=== PATIENT | male | born 1985 | race Caucasian/White ===

== ENCOUNTER → 2019-11-04 | Outpatient (REF) | payer OTHER, MEDICAID ==
[2019-11-04 12:48] LABS: BASO % 0.2 % (0.0-1.0); EOS # 0.2 10^3/uL (0.0-0.5); EOS % 4.2 % (0.0-3.0); HEMATOCRIT 45.4 % (42.0-52.0); LYMPH # 1.7 10^3/uL (1.5-5.0); LYMPH % 36.8 % (24.0-44.0); MEAN CORPUSCULAR HEMOGLOBIN 29.2 pg (27.0-33.0); MEAN CORPUSCULAR VOLUME 88.5 fl (80.0-96.0); MONO # 0.4 10^3/uL (0.0-0.8); MONO % 8.9 % (0.0-5.0); NEUTROPHILS # 2.2 10^3/uL (1.5-8.5); NEUTROPHILS % 49.7 % (36.0-66.0); PLATELET COUNT, AUTOMATED 233 10^3/uL (150-450); RED BLOOD COUNT 5.13 10^6/uL (4.30-6.10); WHITE BLOOD COUNT 4.5 10^3/uL (4.0-10.0)
[2019-11-04 13:18] LABS: HEMOGLOBIN A1c 5.4 %
[2019-11-04 13:32] LABS: ALBUMIN 4.1 GM/DL (3.2-5.2); ALT/SGPT 18 U/L (12-78); BILIRUBIN,TOTAL 0.5 MG/DL (0.2-1.0); BLOOD UREA NITROGEN 14 MG/DL (7-18); CALCIUM LEVEL 8.7 MG/DL (8.5-10.1); CARBON DIOXIDE LEVEL 26 MEQ/L (21-32); CHLORIDE LEVEL 106 MEQ/L (98-107); CHOLESTEROL LEVEL 137 MG/DL (<200); CHOLESTEROL RISK RATIO 3.186 (<5); CREATININE FOR GFR 0.95 MG/DL (0.70-1.30); FREE T4 0.87 NG/DL (0.76-1.46); GLOMERULAR FILTRATION RATE > 60.0 (>60); GLUCOSE, FASTING 98 MG/DL (70-100); HDL CHOLESTEROL 43 MG/DL (>40); LDL CHOLESTEROL 83 MG/DL (<100); NON-HDL-C 94 MG/DL; POTASSIUM SERUM 4.6 MEQ/L (3.5-5.1); SODIUM LEVEL 138 MEQ/L (136-145); TOTAL 25(OH) VITAMIN D 29.4 NG/ML (30.0-100.0); TOTAL PROTEIN 7.4 GM/DL (6.4-8.2); TRIGLYCERIDES LEVEL 57 MG/DL (<150)
== END ==
LOC: M LAB REF 12:02
PROVIDERS: ATTEND Nurse Practitioner Family
DX: M25.532 Pain in left wrist (principal); Z13.9 Encounter for screening, unspecified; F12.90 Cannabis use, unspecified, uncomplicated

== ENCOUNTER 2020-09-17 15:02 | Emergency (ER) | payer MEDICAID, OTHER ==
[~2020-09-17] VITALS: Ht 177.8 cm; Wt 77.2 kg
[2020-09-17] MEDS ORDERED: CBD OIL (15:10)
--- NOTE | 2020-09-17 15:35 | REP ---
INDICATION: fall, injury, pain. COMPARISON: None. TECHNIQUE: Four views of the left wrist. FINDINGS: Four views of the left wrist demonstrate normal bones, joints and soft tissues. No fracture or subluxation is seen. IMPRESSION: Negative radiographs of the left wrist. <Electronically signed by Da Glez > 09/17/20 [id number]
[2020-09-17] MEDS ORDERED: KETOROLAC TROMETHAMINE 10 MG TAB PO ONE (17:50)
[2020-09-17 17:51] VITALS: BP 122/73
== END 2020-09-17 17:51 | disposition home or self-care (01) ==
LOC: M ED 15:02
DX: S63.522A Sprain of radiocarpal joint of left wrist, initial encounter (principal); W19.XXXA Unspecified fall, initial encounter; Y92.9 Unspecified place or not applicable; Y93.51 Activity, roller skating (inline) and skateboarding; Y99.9 Unspecified external cause status; J45.909 Unspecified asthma, uncomplicated; F17.200 Nicotine dependence, unspecified, uncomplicated; F12.10 Cannabis abuse, uncomplicated; Z88.0 Allergy status to penicillin

== ENCOUNTER 2021-10-26 18:38 | Emergency (ER) | payer OTHER ==
[~2021-10-26] VITALS: Ht 177.8 cm; Wt 72.7 kg
[~2021-10-26 18:38] MED LIST: CBD OIL
[2021-10-26 18:39] VITALS: BP 110/65
[2021-10-26] MEDS ORDERED: IBUP80TA PO (22:04)
== END 2021-10-26 22:13 | disposition home or self-care (01) ==
LOC: M ED 18:38
DX: S90.122A Contusion of left lesser toe(s) without damage to nail, initial encounter (principal); W22.09XA Striking against other stationary object, initial encounter; Y92.830 Public park as the place of occurrence of the external cause; Y93.51 Activity, roller skating (inline) and skateboarding; Y99.8 Other external cause status; F17.200 Nicotine dependence, unspecified, uncomplicated; Z88.0 Allergy status to penicillin; Z88.1 Allergy status to other antibiotic agents

== ENCOUNTER 2024-10-20 19:28 | Emergency (ER) | payer OTHER ==
[~2024-10-20] VITALS: Ht 177.8 cm; Wt 73.8 kg
[~2024-10-20 19:28] MED LIST changes: +IBUP80TA PO
[2024-10-20 22:17] VITALS: BP 127/81; TEMP 97.8; O2SAT 100
== END 2024-10-20 22:19 | disposition home or self-care (01) ==
LOC: M ED 19:28
DX: R51.9 Headache, unspecified (principal); Z79.1 Long term (current) use of non-steroidal anti-inflammatories (NSAID); Z79.899 Other long term (current) drug therapy